=== PATIENT | female | born 1980 | race Two or more races ===

== ENCOUNTER 2021-03-04 16:59 | Emergency (ER) | payer SELFPAY ==
[~2021-03-04] VITALS: Ht 152.4 cm; Wt 73.1 kg
[2021-03-04 18:41] LABS: BILIRUBIN,URINE NEGATIVE (NEG); CLARITY,URINE CLEAR; COLOR,URINE YELLOW; NITRITE,URINE NEGATIVE (NEG); PROTEIN,URINE NEGATIVE (NEG-TRACE); UROBILINOGEN,URINE 0.2 mg/dL (0.2 mg/dL)
[2021-03-04 18:45] LABS: U PREG PATIENT NEGATIVE (NEG)
--- NOTE | 2021-03-04 18:45 | PHYS DOC ---
Past Medical History Past Medical History: No Pertinent History Past Surgical History: Smoking Status: Never Smoker Alcohol Use: None General Adult EDM: Chief Complaint: ABDOMINAL PAIN HPI: HPI: Patient is a 40 year old female who is currently on no prescription medications presents for evaluation of lower abdominal/pelvic pain. Patient states she has had this pain for 2 or 3 weeks and states during this time the pain has been mild and would come and go. Yesterday patient states pain was intense to the point where she could not walk. Currently patient states the pain is very mild. Pain is located left lower quadrant left pelvic region and it does not radiate. She denies any associated nausea vomiting or diarrhea. Patient states last menstrual period was January 26. Patient was evaluated at an outside clinic and referred patient for a pelvic ultrasound. Patient presents for evaluation today because she states pain is intense and she cannot wait for the scheduled ultrasound. Review of Systems: Review of Systems: Review of systems: Constitutional symptoms- No fever, no chills. Eyes- No Discharge, No Visual Loss Respiratory symptoms- No shortness of breath, No wheezing, No Dyspnea on Exertion Cardiovascular Systems; No chest pain, No Palpitations, No syncope Gastrointestinal symptoms: Positive abdominal pain, no nausea, no vomiting or diarrhea. Genitourinary symptoms: No dysuria. Positive pelvic pain Musculoskeletal symptoms: No back pain No extremity pain. NEUROLOGICAL Symptoms: No headache, no generalized weakness; No focal Weakness Skin: No rash. Heart Score: C/O Chest Pain: N/A Risk Factors: Risk Factors: DM, Current or recent (<one month) smoker, HTN, HLP, family history of CAD, obesity. Risk Scores: Score 0 - 3: 2.5% MACE over next 6 weeks - Discharge Home Score 4 - 6: 20.3% MACE over next 6 weeks - Admit for Clinical Observation Score 7 - 10: 72.7% MACE over next 6 weeks - Early Invasive Strategies Physical Exam: PE: Constitutional: Well developed, well nourished, no acute distress, non-toxic appearance. [] HENT: Normocephalic, atraumatic, bilateral external ears normal, oropharynx moist, no oral exudates, nose normal. [] Eyes: PERRLA, EOMI, conjunctiva normal, no discharge. [] Neck: Normal range of motion, no tenderness, supple, no stridor. [] Cardiovascular:Heart rate regular rhythm, no murmur [] Lungs & Thorax: Bilateral breath sounds clear to auscultation [] Abdomen: Bowel sounds normal, soft, , no masses, no pulsatile masses. [TENDERNESS LLQ NO REBOUND OR GUARDING] Skin: Warm, dry, no erythema, no rash. [] Back: No tenderness, no CVA tenderness. [] Extremities: No tenderness, no cyanosis, no clubbing, ROM intact, no edema. [] Neurologic: Alert and oriented X 3, normal motor function, normal sensory function, no focal deficits noted. [] Psychologic: Affect normal, judgement normal, mood normal. [] Current Patient Data: Vital Signs: Vital Signs Date Time Temp Pulse Resp B/P (MAP) Pulse Ox O2 Delivery O2 Flow Rate FiO2 03/04/21 17:05 98.4 78 16 139/93 (108) 98 Room Air 98.4 EKG: EKG: [] Radiology/Procedures: Radiology/Procedures: [] Impression: us-OVARIAN CYSTS ON LEFT Course & Med Decision Making: Course & Med Decision Making Pertinent Labs and Imaging studies reviewed. (See chart for details) [] Dragon Disclaimer: [employer] Disclaimer: This electronic medical record was generated, in whole or in part, using a voice recognition dictation system. Departure Departure Impression: Primary Impression: Ovarian cyst Disposition: 01 HOME / SELF CARE / HOMELESS Condition: STABLE Referrals: NO PCP (PCP) Patient Instructions: Ovarian Cyst Scripts Tramadol Hcl (ULTRAM) 50 Mg Tablet 1 TAB PO PRN Q6HRS PRN for pain MDD 4 Tablet(s) for 7 Days, #28 TAB 0 Refills Prov: MARIEL HERNANDEZ DO 03/04/21 MARIEL HERNANDEZ DO Mar 04, 2021 18:45
[2021-03-04 18:47] LABS: BACTERIA,URINE FEW /HPF (0-FEW); RBC,URINE 0 /HPF (0-2); WBC,URINE OCC /HPF (0-4)
[2021-03-04 18:50] LABS: BASO % 0 % (0-3); EOS # 0.2 x10^3/uL (0.0-0.7); EOS % 2 % (0-3); HEMATOCRIT 36.1 % (36.0-47.0); HEMOGLOBIN 12.2 g/dL (12.0-15.5); LYMPH # 1.6 x10^3/uL (1.0-4.8); LYMPH % 20 % (24-48); MEAN CORPUSCULAR HEMOGLOBIN 31 pg (25-35); MEAN CORPUSCULAR HGB CONC 34 g/dL (31-37); MEAN CORPUSCULAR VOLUME 91 fL (79-100); MONO # 0.7 x10^3/uL (0.0-1.1); MONO % 9 % (0-9); NEUT # 5.3 x10^3/uL (1.8-7.7); NEUT % 69 % (31-73); PLATELET COUNT 225 x10^3/uL (140-400); RED BLOOD COUNT 3.97 x10^6/uL (3.50-5.40); RED CELL DISTRIBUTION WIDTH 13.9 % (11.5-14.5); WHITE BLOOD COUNT 7.7 x10^3/uL (4.0-11.0)
[2021-03-04 19:00] LABS: CREATININE 0.7 mg/dL (0.6-1.0); GFR 92.7; POTASSIUM 3.6 mmol/L (3.5-5.1)
[2021-03-04 19:05] LABS: ALBUMIN 4.6 g/dL (3.4-5.0); ALBUMIN/GLOBULIN RATIO 1.2 (1.0-1.7); TOTAL BILIRUBIN 0.5 mg/dL (0.2-1.0); TOTAL PROTEIN 8.3 g/dL (6.4-8.2)
--- NOTE | 2021-03-04 19:51 | RAD ---
US TRANSVAGINAL History: Reason: PELVIC PAIN LT>RT / Spl. Instructions: / History: Comparison: None Technique: Grayscale and color Doppler imaging of the pelvis was performed using transvaginal technMargherita Inventions ue. Findings: The uterus measures 9.5 x 5.4 x 4.1 cm. Nabothian cysts noted. The endometrial stripe measures 11 m m. Right ovary measures 2.4 x 2.0 x 1.8 cm. Left ovary measures 4.5 x 3.2 x 3.0 cm. Dominant left ovarian follicle measures 2.3 cm. Normal Doppler flow to the ovaries. No adnexal masses are seen. IMPRESSION: 1. Dominant left ovarian follicle. 2. Otherwise, unremarkable pelvic ultrasound. Electronically signed by: Jomar Hernandez DO (03/04/2021 7:49 PM) [facility]ST[facility]
[2021-03-04] MEDS ORDERED: TRAM-48 PO (19:56)
[2021-03-04 20:10] VITALS: BP 120/75
== END 2021-03-04 20:07 | disposition home or self-care (01) ==
LOC: ER 16:59
DX: N83.202 Unspecified ovarian cyst, left side (principal); Z98.890 Other specified postprocedural states
CPT/HCPCS: 36415; 76830; 80053; 81001; 81025; 83690; 85025; 99284

== ENCOUNTER → 2021-05-21 | Outpatient (CLI) | payer SELFPAY ==
[~2021-05-21] MED LIST: TRAM-48 PO
--- NOTE | 2021-05-21 17:24 | RAD ---
EXAM: ULTRASOUND PELVIS INDICATION: Reason: CYST OF LEFT OVARY . COMPARISON: 03/04/2021. TECHNIQUE: Transabdominal sonography was performed. FINDINGS: The uterus measures 7.4 x 6.2 x 3.1 cm. Endometrium measures 3.6 mm in thickness. The right ovary radha sures 3.4 x 2.0 x 1.7 cm. The left ovary measures 4.1 x 3.5 x 2.9 cm.Blood flow identified in the rig ht and left ovaries. There is a 2.3 cm cystic structure identified in the left ovary similar to prior exam. IMPRESSION: Unchanged 2.3 cm cystic structure left ovary likely a follicle similar to prior exam. Electronically signed by: Andi Tinoco MD (05/21/2021 5:21 PM) [id number]
== END ==
LOC: US 16:00
PROVIDERS: ATTEND Obstetrics & Gynecology
DX: N83.202 Unspecified ovarian cyst, left side (principal)
CPT/HCPCS: 76856